=== PATIENT | male | born 1945 | race Caucasian/White ===

== ENCOUNTER → 2016-05-17 | Day surgery (SDC) | payer MEDICARE, BC ==
[~2016-05-17] VITALS: Ht 180.3 cm; Wt 116.0 kg
[~2016-05-17] MED LIST: ATEN50TA PO; BUPIVACAINE HCL PF 0.5% 30 ML VIAL ONE; CLINDAMYCIN PHOS 900 MG/6 ML VIAL ONE; DEXT 5%-NACL 0.45% 1000 ML INJ 1,000 ML IV SCH; FAMOTIDINE 20 MG/2 ML VIAL ONE; IBUP800T23 PO; LACTATED RINGER'S 1000 ML INJ 1,000 ML ONE; LIDOCAINE HCL 2% 50 ML VIAL ONE; LIPI80TA PO; MIDAZOLAM HCL 2 MG/2 ML VIAL ONE; POVIDONE IODINE 10% OINT 1 PACKET TOPICAL ONE; PROPOFOL 200 MG/20 ML AMP IV ONE; SODIUM CHLORIDE 0.9% FLUSH 5 ML FLUSH IVF PRN; SODIUM CHLORIDE 0.9% FLUSH 5 ML FLUSH IVF SCH; SODIUM CHLORIDE 0.9% INJ 100 ML ONE; TOBRAMYCIN/DEXAMETHASONE OPTH OINT 3.5 GM TUBE ONE
[2016-05-17 06:39] VITALS: BP 140/84; PULSE 72; RESP 20; TEMP 97.7; O2SAT 95
[2016-05-17 07:02] LABS: HEMATOCRIT 39.1 % (39.0-51.0); MEAN CELL VOLUME 92.5 FL (80.0-100.0); MEAN CORPUSCULAR HEMOGLOBIN 30.8 PG (27.0-34.0); MEAN CORPUSCULAR HGB CONC 33.3 % (32.0-36.0); PLATELET COUNT 168 TH/MM3 (150-450); RED BLOOD COUNT 4.23 MIL/MM3 (4.50-5.90); RED CELL DISTRIBUTION WIDTH 12.9 % (11.6-17.2); REVIEW FLAG FINAL; WHITE BLOOD COUNT 6.1 TH/MM3 (4.0-11.0)
--- NOTE | 2016-05-17 08:03 | HP.UPD ---
H&P Update Date: May 17, 2016 Note The Pre-Admit History and Physical Examination regarding the above named patient was reviewed (including, but not limited to, vital signs, medications, allergies, co-morbid conditions), and upon re-examination it is noted that: Indicated with "X" x - the patient's condition has not significantly changed since the last examination. [] - the patient's condition has changed since the last examination. Changes: Zora Goldsmith MD May 17, 2016 08:03
--- NOTE | 2016-05-17 11:16 | HHI.PR ---
Immediate Post Op Note Procedure Date: May 17, 2016 Pre Op Diagnosis: (1) Scar adherent Post Op Diagnosis: (1) Scar adherent Surgeon: Zora Goldsmith [place] Measurer(s): None Procedure: Flexor tenolysis of the left third finger. Estimated blood loss: 20 ml Anesthesia: MAC Drains: None Tourniquet time (min at mmHg) 69 minutes total 36/33 Patient to: SDS Patient Condition: Good Date/Time of Procedure: SEE SURGICAL CARE RECORD Zora Goldsmith MD May 17, 2016 11:16
[2016-05-17 11:35] VITALS: BP 120/81; PULSE 67; RESP 16; TEMP 98; O2SAT 97
--- NOTE | 2016-05-20 10:17 | MP ---
cc: OMERO PAIGE M.D. DATE OF SURGERY 05/17/2016 PREOPERATIVE DIAGNOSIS Scar adhesions in the area of tendon injury left third finger. POSTOPERATIVE DIAGNOSIS Scar adhesions in the area of tendon injury left third finger. PROCEDURES Flexor tenolysis left third finger. ANESTHESIA Local with MAC. SURGEON Dr. Paige INDICATION A 70-year-old male who injured his left hand approximately 9 months ago. The patient had a subsequent rupture to the index finger which was repaired. The middle finger continued to do well but he never had significant pull-through to the tip. FINDINGS The flexor digitorum profundus was scarred in beneath the A2 maury to the flexor digitorum superficialis. It did appear to be attenuated and may have had a previous rupture. Despite repeated attempts at tenolysis there was definitely some decreased motion but there was no independent function of the profundus. The patient was awakened and we had a discussion regarding creating a [id number] suturing in order to give him function of the tip, although this would put him at risk for rupture and inability to flex the finger at all. Decision was made by the patient that he did not want to go that route and so we tenolysed what we could and closed the wound. Tourniquet times were 36 minutes, ant 33 minutes by approximately 15 minutes. PROCEDURE The patient was seen preoperatively where the site and side were identified and marked. The patient was then taken to the operating room, placed in a supine position. His identity was checked against the arm band and the consent form, site and side confirmed, time-out called prior to beginning the procedure. The left upper extremity was prepped with Hibiclens and draped in the usual sterile fashion. The area to be incised was outlined with a marking pen as a zigzag incision from the A1 maury all the way to the tip of the finger. The arm was exsanguinated after anesthetizing the finger using a metacarpal head block dorsally and palmarly. Once the finger was exsanguinated, a tourniquet was inflated to 200 mmHg. The tourniquet was placed on the patient's forearm just distal to the elbow crease. A #15 blade was used to make incisions over the area of previous injury. Flaps were elevated and raised exposing the tendon sheath which was quite scarred in. It was opened in the area of the A3 maury. Tenolysis was undertaken distally and proximally and all the way to the A1 maury where there appeared to be good pull-through. There was some tenolysis necessary in this area. In the area of the A2 maury, as we dissected it, it was noted that the flexor digitorum profundus was getting smaller and smaller and appeared to have possibly ruptured and scarred into the sublimis. After having the patient flex the hand several times during both parts of the procedure, the first part and the second part, that is when the decision was made to close the wound. Initially the tourniquet was up 36 minutes. It was then released. The patient was asked to flex his hand and there was no independent pull-through at this tip. Dissection was continued for another 18 minutes. At this point the hand was re-exsanguinated and the incision was extended all the way to the A1 maury with flaps elevated and raised exposing the tendons. The adhesions between the deep and superficial flexors was undertaken at this point. The tourniquet was released the second time after 33 minutes and the patient was asked to flex his hand after several minutes once the blood had circulated through and again there was no definite independent flexion to the tip, although there was good motion of the flexor digitorum superficialis. The wound was then copiously irrigated with saline and closed with interrupted and running 5-0 nylon suture. The hand was then cleansed of Hibiclens and blood and dressed with povidone-iodine ointment, Adaptic, Telfa, 4x4s and hand wrap. The patient was encouraged to flex his hand, keep it elevated and was given a prescription for ibuprofen 800 mg every 8 hours as needed for pain. The patient is advised he will swelling over the weekend but that he can flex the hand as able and he is to return next week for follow up. MD SHEBA Sesay/RYANN /11:20 AM /9:42 AM
== END | disposition home or self-care (01) ==
LOC: PHSDC 06:06
PROVIDERS: ATTEND Specialist
DX: L90.5 Scar conditions and fibrosis of skin (principal); I10 Essential (primary) hypertension
CPT/HCPCS: 01810; 26440; 36415; 85027; J2250; J7120